=== PATIENT | male | born 2005 | race Caucasian/White ===

== ENCOUNTER 2024-06-07 20:32 | Emergency (ER) | payer BC, SELFPAY ==
[2024-06-07 20:36] VITALS: BP 147/76; BMI 20.7
[2024-06-07 20:48] LABS: % Basophils 0.2 % (0-2); % Eosinophils 0.2 % (0-6); % Immature Granulocytes 0.4 % (0-0.5); % Lymphocytes 20.5 % (20.5-51.1); % Monocytes 10.9 % (1.7-9.3); % Neutrophils 67.8 % (42.2-75.2); Absolute Lymphocytes 1.9 10^3/uL (1.2-3.4); Absolute Neutrophils 6.2 10^3/uL (1.4-6.5); Hematocrit 44.4 % (39.0-52.0); Hemoglobin 15.4 g/dL (13.0-18.0); Mean Corp Hgb Conc. 34.7 g/dL (33.0-37.0); Mean Corpuscular Hgb 28.3 pg (27.0-31.0); Mean Corpuscular Volume 81.5 fL (80.0-94.0); Mean Platelet Volume 9.5 fL (7.4-10.4); Nucleated Red Blood Cells % 0 % (-); Platelet Count 323 10^3/uL (130-400); Red Blood Cell Count 5.45 10^6/uL (4.70-6.10); Red Cell Dist. Width 12.1 % (11.5-14.5); White Blood Cell Count 9.1 10^3/uL (4.8-10.8)
[2024-06-07 21:08] LABS: ALT (SGPT) 24 U/L (0-50); AST (SGOT) 34 U/L (17-59); Albumin 5.3 g/dl (3.5-5.0); Alkaline Phosphatase 104 U/L (38-126); Blood Urea Nitrogen 23 mg/dl (9-20); Calcium 10.6 mg/dl (8.4-10.2); Carbon Dioxide 27 mmol/L (22-30); Chloride 99 mmol/L (98-107); Estimated Creatinine Clearance 76 ml/min; Glucose 118 mg/dl (70-99); Potassium 4.1 mmol/L (3.5-5.1); Sodium 136 mmol/L (135-145); Total Bilirubin 1.3 mg/dl (0.2-1.3); Total Protein 7.8 g/dl (6.3-8.2); eGFR > 60.00
[2024-06-07 21:19] LABS: Troponin I < 0.012 ng/ml
[2024-06-07 22:44] VITALS: BP 127/72
[2024-06-07 23:18] VITALS: BP 91/51
[2024-06-07 23:20] VITALS: BP 101/45
[2024-06-07] MEDS: NSS 1000 IV (23:24)
[2024-06-07] MEDS: MAALOX 50 PO (23:25)
[2024-06-07] MEDS: PROTONIX IV 40 MG IV (23:25)
--- NOTE | 2024-06-07 23:46 | ED.GENMED ---
History of Present Illness
General
Chief Complaint: Chest Pain
Source: patient and family (Mother who is at bedside)
Exam Limitations: none
Time Seen by Provider: 06/07/24 22:03
Nursing documentation reviewed up to this point in time: agreed with
History of Present Illness
History of Present Illness:
This is a 18-year-old male who has no significant past medical history complains of lower substernal chest pain that began around 3 PM while golfing and admittedly hot, humid weather. Substernal chest pain has persisted throughout the
afternoon/evening and is worse with deep breath, worse with lying supine. Mildly temporized with drinking water. He denies nausea or vomiting, no back pain no neck pain, no cough nor shortness of breath, no fevers or chills, no abdominal pain. He
does admit to some similar but milder lower substernal chest pain that frequently radiates to his throat that is only noted when he first lies down to bed.
He has history of 1 episode of syncope August 2023 AT [facility] that occurred after walking from his dorm to campus. He became lightheaded and proceeded to pass out. 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
cardiac evaluation including EKG, echocardiogram. There was plan for Holter monitor that has not been performed as yet but patient has had no recurrent symptoms.
He works out on a regular basis, lifting weights. Admits that he generally does not perform cardio exercises.
He takes supplements such as creatine, preworkout but denies significant caffeine intake. Admits to very rare alcohol consumption. Denies drug use. Denies NSAID use.
Non-smoker.
He takes no medicines on a daily basis.
Past History
Past History
ED Past Medical History: None and Other (1 episode of syncope August 2023)
ED Past Surgical History: None
Social History
Tobacco: Non-smoker
Alcohol: Occasional (Rare alcohol use)
Drug: None
Personal: Single
Living: with family
Employment: Student
Family History
Family History: Other (Noncontributory)
Phy Exam
Physical Exam
Physical Exam:
GENERAL: 18-year-old male appears his stated age, bright and alert, pleasant, appears in no acute distress. Mother is accompanying.
EYE: anicteric
NECK: Supple, nontender, no meningismus, no significant adenopathy.
ENT: oral mucosa is moist. No rhinorrhea.
CARDIAC: Regular rate and rhythm. no murmur. Mild tenderness lower sternal region.
LUNGS: Clear breath sounds bilaterally, no acute respiratory distress, no wheezes/rales/rhonchi
ABDOMEN: Soft, nondistended, without focal tenderness, no r/g, no cvat. normoactive BS.
NEUROLOGICAL: Alert and oriented x3, no focal neuro deficits. Gait is cruz and steady.
SKIN: Warm and dry, normal color, skin intact. No rash.
MUSCULOSKELETAL: No C/C/E. peripheral pulses are full and equal b/l. No palpable tenderness.
PSYCH: Normal and appropriate interaction.
Scores
Heart Score for Chest Pain Patients
STEMI patient?: No
History: Slightly or Non-Suspicious
ECG: Normal
Age: </= 45 years
Risk Factors: No Risk Factors
Troponin: </= Normal Limit
Heart Score for Chest Pain Patients: 0
Heart Score Risk: 2.5% MACE over next 6 weeks
Course
Orders/Labs/Results
Orders:
Orders
06/07/24 20:35
Electrocardiogram (*1) Urgent
Reason for Study: Chest Pain
EKG- Treatment ONCE
06/07/24 20:43
Complete Blood Count/With Diff Urgent
Comprehensive Metabolic Panel Urgent
Troponin I Urgent
06/07/24 23:02
0.9% Sodium Chloride 1000 ml [Nss] 1,000 ml IV BOLUS
Mag Hydrox/Al Hydrox/Simeth [Maalox] 30 ml Phenobarb/Hyoscy/Atropine/Scop [] 10 ml Viscous Lidocaine 2% [Xylocaine Viscous Cup] 10 ml PO NOW
Pantoprazole [Protonix IV] 40 mg IV NOW STA
06/07/24 23:09
Mag Hydrox/Al Hydrox/Simeth [Maalox] 30 ml .ROUTE .STK-MED ONE
Phenobarb/Hyoscy/Atropine/Scop [] 10 ml .ROUTE .STK-MED ONE
06/07/24 23:10
Viscous Lidocaine 2% [Xylocaine Viscous Cup] 15 ml .ROUTE .STK-MED ONE
06/08/24 00:00
CR Chest - 2 Views Urgent
Reason For Exam: SSCP onset today-worse w deep breath
06/08/24 00:44
Acetaminophen [Tylenol] 1,000 mg PO NOW STA
Abnormal Lab Results
06/07/24
20:43
Absolute Monos (auto) 1.0 H 10^3/uL
(0.1-0.6)
Monocytes % 10.9 H %
(1.7-9.3)
BUN 23 H mg/dl
(9-20)
Creatinine 1.4 H mg/dL
(0.7-1.3)
Glucose 118 H mg/dl
(70-99)
Calcium 10.6 H mg/dl
(8.4-10.2)
Albumin 5.3 H g/dl
(3.5-5.0)
06/07/24 20:43
06/07/24 20:43
Vital Signs
Initial and Last Documented VS:
Initial Vital Signs
Temp Pulse Resp BP Pulse Ox
97.6 F 78 16 147/76 100
06/07/24 20:36 06/07/24 20:36 06/07/24 20:36 06/07/24 20:36 06/07/24 20:36
Last Documented Vital Signs
Temp Pulse Resp BP Pulse Ox
97.6 F 62 16 121/83 96
06/07/24 20:36 06/08/24 01:00 06/07/24 20:36 06/08/24 00:00 06/08/24 01:00
MDM/Problems Addressed
Differential Diagnosis Includes:
Concern for GERD/esophagitis, costochondritis, chest wall strain, pneumomediastinum, pneumothorax, pleurisy, less likely myocarditis/cardiomyopathy.
EKG shows normal sinus rhythm/sinus arrhythmia. Otherwise unremarkable. No old EKG to compare.
Monitor shows normal sinus rhythm without ectopy.
Labs are unremarkable save for elevated BUN and creatinine at 23/1.4. No old labs to compare. I suspect elevated creatinine BUN are an element of dehydration as patient has been active and extremely hot/humid weather.
Other consideration is elevated creatinine related to creatine supplement use.
Troponin is normal.
Will initiate IV fluids, given IV dose of Protonix and trial a GI cocktail.
Will check chest x-ray.
*Radiology
Radiology exam reviewed: preliminary read by ED provider ( Chest x-ray shows small to moderate-sized chest x-ray shows pneumomediastinum small to moderate-sized pneumomediastinum with small amount of air pericardiac tracking up to the bilateral
neck region left greater than right. Clear lung mcmanus)
*Pulse Oximetry
Patient hypoxic: no
*EKG
Interpreted by ED Provider?: Yes
Interpretation: normal
Comparison EKG: no comparison EKG present
Rate: normal
Rhythm: sinus arrhythmia
[place]: normal axis
Interval: normal interval
QRS Pattern: normal QRS
Ischemia: no ischemia
*Health Science Instructor Interpretation
Rate: normal
Interpretation: normal
Rhythm: sinus
*Critical Care Note
Total Time (30-74mins, 75-104mins- exclusive of procedures): Not Applicable
Update Note
Update Note:
06/08/2024 0047 AM
Chest x-ray shows pneumomediastinum with small amount of air tracking up to bilateral paracervical region left greater than right.
Patient does lift weights on a daily basis and unclear if pneumomediastinum related to weight lifting versus golfing activities.
Overall appears comfortable.
Recommend he avoid lifting, avoid strenuous activities at least over the next week.
Discussed importance of staying well-hydrated on a daily basis, avoid hot, humid weather.
May take Tylenol as needed for pain. After rehydrating, can initiate ibuprofen in 1 to 2 days time for as needed discomfort.
Recommend prompt follow-up with PCP this week for recheck.
Return precautions discussed.
ED Attending Note
-
Portions of this chart may have been created with voice recognition software.� Occasional wrong word or��sound alike� substitutions may have occurred due to the inherent limitations of voice recognition software.
Discharge Plan
Departure
Patient Disposition: Home (Routine Discharge)
Date of Disposition: 06/08/24
Time of Disposition: 00:49
Patient with high blood pressure during this ER visit?: No
Condition: Good
Discharge Problem:
Pneumomediastinum
Prescriptions:
No Action
No Current Medications
0
Referrals:
Jose Antonio Davis MD [Family Provider] - Call in 1-3 days for appt
Activity Restrictions/Additional Instructions:
Over the next week I want you to refrain from all lifting activities, avoid bearing down etc.
I want you to rest and take it easy over the next week.
Stay well-hydrated on a daily basis and avoid hot/humid weather.
Follow-up with your primary care physician this week for recheck.
If chest pain worsens especially if accompanied with difficulty breathing or onset of fever, prompt return to the ER for further evaluation.
Interventions
Interventions:
*Risk Screen - Suicide Last Done: 06/07/24 20:36
*General Assessment Last Done: 06/08/24 01:35
*Neglect/Abuse Screening Last Done: 06/07/24 20:36
ED- Fall Risk Assessment Last Done: 06/08/24 00:14
*ED COVID-19 Vaccine History Last Done: 06/08/24 01:35
*Nursing Disposition Last Done: 06/08/24 01:35
ED- Cardiac Assessment Last Done: 06/08/24 00:14
Discharge Date and Time
Discharge Date/Time: 06/08/24 01:36
Print Language: ARGENTINE
[2024-06-08] VITALS: BP 121/83
[2024-06-08] MEDS: TYLENOL 1000 MG PO (01:13)
== END 2024-06-08 01:36 | disposition home or self-care (01) ==
LOC: EMR 20:32
PROVIDERS: Student in an Organized Health Care Education/Training Program; EMERGENCY PHYSICIAN Emergency Medicine; FAMILY PHYSICIAN Family Medicine
DX: J98.2 Interstitial emphysema (principal)
CPT/HCPCS: 99285; 96374; 96361; 71046; 80053; 84484; 85025; 93005